=== PATIENT | female | born 1945 | race Caucasian/White ===

== ENCOUNTER 2016-10-23 07:50 | Inpatient (IN) | payer MEDICARE, MEDICAID ==
[~2016-10-23] VITALS: Ht 154.9 cm; Wt 73.0 kg
--- NOTE | 2016-10-23 07:50 | NUR ---
Patient to ER bed 4 to gown for evaluation. Side rails up. Report given to Kanwal SOLORZANO.
--- NOTE | 2016-10-23 07:58 | NUR ---
ER Dr. Newby at bedside examining patient.
[2016-10-23 07:59] VITALS: BP 136/78; PULSE 121; RESP 17; TEMP 97.1; O2SAT 99
--- NOTE | 2016-10-23 07:59 | NUR ---
DR AHUMADA AT BEDSIDE FOR EVALUATION
--- NOTE | 2016-10-23 08:02 | NUR ---
PT STATES SHE HAS BEEN VOMITING AND UNABLE TO KEEP ANY FOOD DOWN, DENIES CHOKING ON FOOD. DENIES ANY ABD PAIN.
[2016-10-23] MEDS ORDERED: NACL 0.9% 1,000 ML IV ONE ×2 (08:03→09:00)
[2016-10-23 08:18] LABS: BASOPHILS # (AUTO) 0.1 K/uL (0.0-0.2); HEMOGLOBIN 12.6 g/dL (12.0-16.0); LYMPHOCYTES # (AUTO) 1.2 K/uL (1.0-5.5); MEAN CORPUSCULAR HEMOGLOBIN 31 pg (27-31); MEAN CORPUSCULAR HGB CONC 34 % (32-36); MEAN CORPUSCULAR VOLUME 92 fL (79.0-98.0); MONOCYTES # (AUTO) 0.2 K/uL (0.0-1.0); MONOCYTES % (AUTO) 2.7 % (1.7-9.3); NEUTROPHILS # (AUTO) 6.7 K/uL (1.8-7.7); NEUTROPHILS % (AUTO) 81.3 % (40.0-70.0); PLATELET COUNT (AUTO) 241 K/uL (130-430); RED BLOOD CELL COUNT(AUTO) 4.03 MIL/uL (4.2-6.2); RED CELL DISTRIBUTION WIDTH 12.6 % (9.0-15.0); WHITE BLOOD COUNT (AUTO) 8.2 K/uL (4.8-10.8)
[2016-10-23 08:28] LABS: CREATININE 1.93 mg/dL (0.55-1.30)
[2016-10-23 08:29] LABS: PROTHROMBIN TIME 10.9 SECS (9.5-12.5)
--- NOTE | 2016-10-23 08:41 | NUR ---
PHARMACY CALLED FOR MEDS
[2016-10-23] MEDS ORDERED: MAGNESIUM SULFATE 50 ML IV ONE (08:45)
[2016-10-23] MEDS ORDERED: POTASSIUM CHLORIDE 20 MEQ TAB.PRT.SR PO ONE (08:45)
[2016-10-23] MEDS ORDERED: POTASSIUM CHLORIDE 40 MEQ in NS 250 ML IV ONE (08:45)
[2016-10-23 08:49] LABS: TOTAL BILIRUBIN 0.7 mg/dL (0.0-1.0)
[2016-10-23] MEDS ORDERED: BENA20TA2 PO (08:52)
[2016-10-23] MEDS ORDERED: HYDR25TA4 PO (08:52)
--- NOTE | 2016-10-23 08:52 | NUR ---
PT STATES SHE CAN NOT REMEMBER ALL HER HOME MEDS, SHE TAKES A NEW MED FOR THYROID, AND "A FEW OTHERS"
[2016-10-23 08:54] LABS: BILIRUBIN,URINE 1+ (NEGATIVE); CLARITY/URINE SL HAZY (CLEAR); COLOR,URINE YELLOW (YELLOW); GLUCOSE,URINE NEGATIVE (NEGATIVE); KETONES,URINE 1+ (NEGATIVE); LEUKOCYTE ESTERASE ,URINE 2+ (NEGATIVE); NITRITE, URINE NEGATIVE (NEGATIVE); PROTEIN URINE TRACE (NEGATIVE); UROBILINOGEN,URINE 0.2 (0.2-1.0)
[2016-10-23 08:58] LABS: ALBUMIN 4.7 g/dL (3.4-4.8)
[2016-10-23] MEDS ORDERED: NS 500 ML IV ONE (09:00)
[2016-10-23] MEDS ORDERED: ONDANSETRON HCL 4 MG/2 ML VIAL IVP ONE (09:00)
[2016-10-23 09:04] LABS: POTASSIUM 2.7 mmol/L (3.5-5.1)
[2016-10-23 09:05] LABS: CALCIUM 15.6 mg/dL (8.4-11.0)
[2016-10-23] MEDS ORDERED: POTASSIUM CHLORIDE 20 MEQ/PKT PACKET ONE (09:05)
[2016-10-23 09:08] LABS: BLOOD, URINE TRACE (NEGATIVE)
[2016-10-23 09:13] LABS: BACTERIA,URINE FEW /HPF (None Seen); MUCUS,URINE 1+ /LPF (None Seen); RBC,URINE 0-3 /HPF (0-3)
--- NOTE | 2016-10-23 09:39 | NUR ---
Patient will be admitted to care of DR BANUELOS. Admitted to TELE unit. Will go to room 108 C. Belongings list completed. Summary report printed. Report given to NURSE.
--- NOTE | 2016-10-23 10:00 | NUR ---
ADMISSION NOTE Received patient from ER via gurney. Patient admitted with diagnosis of hypercalcemia, and renal failure. Patient is awake, alert, oriented X 4. Patient oriented to hospital room, call light, toileting, pain management and safety-teach back done. Patient informed that Ora will be her nurse and that their room number is 108C. Personal belongings checked and Belongings List documented. Call light within reach.
--- NOTE | 2016-10-23 10:20 | NUR ---
initial notes rec patient awake alert oriented with hob elevated. both ivf infusing well on both ac. resp easy and unlabored. no nausea vomiting noted at this time. bed in low position and side rails up and locked. call light within reached and knows when to call for help. will continue to monitor patient.
[2016-10-23 10:22] VITALS: BP 114/81; PULSE 85; RESP 16; TEMP 98.1; O2SAT 98
--- NOTE | 2016-10-23 11:30 | NUR ---
seen by dr greene and with orders.
--- NOTE | 2016-10-23 12:01 | NUR ---
CONSULT CONSULT ORDERED WITH DR. SOLORIO FOR HYPERCALCEMIA. CONSULT ORDERED WITH DR. LOUISE FOR NAUSEA/VOMITING SPOKE WITH ENMANUEL
--- NOTE | 2016-10-23 14:30 | NUR ---
rounds ultrasound done at the bedside. dr saez called and gave him cmp result.
[2016-10-23 16:00] VITALS: BP 123/56; PULSE 78; RESP 18; TEMP 97.5; O2SAT 99
--- NOTE | 2016-10-23 17:00 | NUR ---
rounds seen by dr cai.
[2016-10-23] MEDS: cefTRIAXone 1 GM IVPB PREMIX 50 ML IV SCH (17:20)
[2016-10-23] MEDS: D5NS 1,000 ML IV SCH ×2 (17:21→21:45)
--- NOTE | 2016-10-23 18:30 | NUR ---
closing notes resting quietly, no nausea vomiting noted. stable, needs attended. no acute distress.
[2016-10-23 20:12] VITALS: BP 121/67; PULSE 79; RESP 15; TEMP 97.4; O2SAT 99
--- NOTE | 2016-10-23 20:13 | NUR ---
OPENING NOTES PATIENT IS A/OX4. NO SIGNS OF DISTRESS. BREATHING IS NON LABORED. VITAL SIGNS ARE STABLE. PATIENT HAS NO COMPLAINTS OF PAIN AT THIS TIME. PATIENT WALKED TO THE RESTROOM. GAIT IS STEADY. PATIENT INSTRUCTED TO CALL FOR ASSISTANCE. WILL CONTINUE TO MONITOR. CALL LIGHT IS WITHIN REACH. SAFETY MEASURES ARE IN PLACE. WILL CONTINUE TO MONITOR.
--- NOTE | 2016-10-23 20:50 | NUR ---
ROUNDS PATIENT WAS ASSISTED TO RESTROOM AND BACK INTO BED. GAIT IS STEADY. NO COMPLAINTS OF PAIN. NO COMPLAINTS OF NAUSEA.
--- NOTE | 2016-10-23 23:20 | NUR ---
ROUNDS PATIENT WAS GIVEN ICE CHIPS.
[2016-10-24 00:30] VITALS: BP 96/53; PULSE 67; RESP 18; TEMP 98.6; O2SAT 97
--- NOTE | 2016-10-24 01:18 | NUR ---
ROUNDS PATIENT IS IN BED SLEEPING. NO SIGNS OF DISTRESS. BREATHING IS NON LABORED. CALL LIGHT IS WITHIN REACH. SAFETY MEASURES ARE IN PLACE. WILL CONTINUE TO MONITOR.
--- NOTE | 2016-10-24 03:20 | NUR ---
ROUNDS PATIENT IS IN BED RESTING. PATIENT WAS GIVEN ICE CHIPS. NO SIGNS OF DISTRESS. BREATHING IS NON LABORED. PATIENT HAS NO COMPLAINTS OF PAIN. CALL LIGHT IS WITHIN REACH. SAFETY MEASURES ARE IN PLACE. WILL CONTINUE TO MONITOR.
[2016-10-24 04:34] VITALS: BP 92/55; PULSE 66; RESP 15; TEMP 96.8; O2SAT 98
--- NOTE | 2016-10-24 05:25 | NUR ---
ROUNDS PATIENT IS IN BED WATCHING TV. NO SIGNS OF DISTRESS. BREATHING IS NON LABORED. PATIENT WAS GIVEN ICE CHIPS.
--- NOTE | 2016-10-24 07:04 | NUR ---
CLOSING NOTES PATIENT IS IN BED RESTING AND WATCHING TV. NO SIGNS OF DISTRESS. BREATHING IS NON LABORED. IV IS PATENT AND SHOWS NO SIGNS OF COMPLICATIONS. PATIENT HAS NO COMPLAINTS OF NAUSEA OR VOMITING. CALL LIGHT IS WITHIN REACH. SAFETY MEASURES ARE IN PLACE. WILL CONTINUE TO MONITOR.
[2016-10-24 07:17] LABS: BASOPHILS % (AUTO) 0.5 % (0.0-2.0); EOSINOPHILS % (AUTO) 0.3 % (0.0-4.0); HEMATOCRIT 29.4 % (36-48); HEMOGLOBIN 9.7 g/dL (12.0-16.0); LYMPHOCYTES # (AUTO) 1.2 K/uL (1.0-5.5); LYMPHOCYTES % (AUTO) 29.4 % (20.5-51.5); MEAN CORPUSCULAR HEMOGLOBIN 31 pg (27-31); MEAN CORPUSCULAR HGB CONC 33 % (32-36); MEAN CORPUSCULAR VOLUME 95 fL (79.0-98.0); MONOCYTES # (AUTO) 0.2 K/uL (0.0-1.0); MONOCYTES % (AUTO) 4.6 % (1.7-9.3); NEUTROPHILS # (AUTO) 2.8 K/uL (1.8-7.7); NEUTROPHILS % (AUTO) 65.2 % (40.0-70.0); PLATELET COUNT (AUTO) 154 K/uL (130-430); RED BLOOD CELL COUNT(AUTO) 3.11 MIL/uL (4.2-6.2); RED CELL DISTRIBUTION WIDTH 12.8 % (9.0-15.0)
[2016-10-24 07:27] LABS: WHITE BLOOD COUNT (AUTO) 4.2 K/uL (4.8-10.8)
[2016-10-24 08:00] VITALS: BP 104/60; PULSE 69; RESP 18; TEMP 98.6; O2SAT 100
--- NOTE | 2016-10-24 08:00 | NUR ---
NOTE PT SITTING UP IN BED EATING HER ICE CHIPS. VSS. NO SOB/RESP DISTRESS OR PAIN/DISCOMFORT NOTED AT THIS TIME. IVF'S INFUSING WELL THROUGH RIGHT HAND IV SITE. CALL LIGHT WITHIN REACH.
[2016-10-24 10:02] LABS: CALCIUM 11.6 mg/dL (8.4-11.0); CREATININE 1.45 mg/dL (0.55-1.30)
[2016-10-24 10:07] LABS: POTASSIUM 2.9 mmol/L (3.5-5.1)
[2016-10-24 10:10] LABS: TOTAL BILIRUBIN 0.4 mg/dL (0.0-1.0)
[2016-10-24 10:11] LABS: ALBUMIN 3.6 g/dL (3.4-4.8); PHOSPHORUS 1.6 mg/dL (2.7-4.5); TOTAL PROTEIN, SERUM 7.3 g/dL (6.4-8.3)
[2016-10-24 10:14] LABS: IRON (SERUM) 67 mcg/dL (37-145); TOTAL IRON BIND. CAPACITY 246 ug/dL (250-450)
--- NOTE | 2016-10-24 12:00 | NUR ---
NOTE PT RESTING IN BED. PT TO HAVE CLEAR LIQUID DIET TILL MIDNIGHT, THEN PT TO BE NPO FOR EGD IN AM. PT NOTIFIED AND QUESTIONS/CONCERNS WERE ANSWERED AT THIS TIME. NO NEEDS NOTED. CALL LIGHT WITHIN REACH.
[2016-10-24 12:35] VITALS: BP 116/59; PULSE 73; RESP 17; TEMP 98.1; O2SAT 93
[2016-10-24] MEDS ORDERED: POTASSIUM CHLORIDE 40 MEQ in NS 250 ML IV ONE (12:45)
[2016-10-24] MEDS ORDERED: PSYLLIUM HUSK 1 PKT PACKET PO ONE (12:45)
[2016-10-24] MEDS ORDERED: POTASSIUM CHLORIDE 20 MEQ TAB.PRT.SR PO ONE (12:45)
[2016-10-24] MEDS ORDERED: PSYLLIUM HUSK 1 PKT PACKET PO SCH (12:45)
[2016-10-24] MEDS: cefTRIAXone 1 GM IVPB PREMIX 50 ML IV SCH (12:56)
[2016-10-24] MEDS: D5NS 1,000 ML IV SCH ×2 (12:59→22:35)
--- NOTE | 2016-10-24 16:00 | NUR ---
NOTE DR SOLORIO WAS CALLED AND REPORT OF K=2.9 GIVEN, ORDERS REC'D AND CARRIED OUT AT THIS TIME. NO NEEDS NOTED. CALL LIGHT WITHIN REACH.
[2016-10-24 16:23] VITALS: BP 105/54; PULSE 74; RESP 18; TEMP 98.7; O2SAT 95
--- NOTE | 2016-10-24 18:25 | NUR ---
NOTE PT AMBULATES TO THE RESTROOM, ABLE TO VOID BUT NO BOWEL MOVEMENT AT THIS TIME. IVF'S INFUSING WELL THROUGH RIGHT HAND IV SITE. TELE UNIT ATTACHED AND INTACT AT THIS TIME. PT WAS CHECKED ON Q1'A ND PRN FOR NEEDS AND CARE ALL SHIFT. NO NEEDS NOTED. CALL LIGHT WITHIN REACH.
--- NOTE | 2016-10-24 19:00 | NUR ---
NOTE PT WAS DOWN GRADED FROM TELE STATUS TO MED SURG AT THIS TIME. TELE UNIT DC'D AND RETURNED TO SKEIN SPOOLER.
[2016-10-24 19:35] VITALS: BP 132/70; PULSE 83; RESP 18; TEMP 98.7; O2SAT 97
--- NOTE | 2016-10-24 19:35 | NUR ---
Initial Notes Pt is A/Ox4. Pt is pleasant and cooperative. No acute distress or sob noted. Pt c/o heartburn, will page md for orders. VSS. IV to RAC #20g noted, infusing well with D5NS@100cc/hr. Pt aware that she will be NPO after midnight for planned EGD in am, consent checked and noted to be signed and filed in chart. Pt is BRP with assist. Pt stated that she was given Metamucil earlier today for constipation. Asked pt if she wanted additional stool softener, but pt stated, No I had enough for today." Pt educated sales correspondence clerk light use, and correct back demonstration noted. Pt was also given direct ext and asked to call nurse when needed. Pt denies any nausea or vomiting at this time. Safety precautions in place, side rails up x3, with bed in lowest, locked position, bed alarm on at all times. Call light in hand. Will continue to monitor.
--- NOTE | 2016-10-24 19:58 | NUR ---
PAGEAriadna CALLED HCP AT SPOKE WITH DR.REZVANI GUTIERREZ FARHAD MACHINE ASSEMBLER FOR PULLER OVER.
--- NOTE | 2016-10-24 20:01 | NUR ---
Edith Sharma MD at this time to inform that pt is c/o heartburn. Will await call back.
[2016-10-24] MEDS ORDERED: MAG-AL HYDROX/SIMETH 30 ML UDC PO PRN (20:15)
[2016-10-24] MEDS ORDERED: BISACODYL 5 MG TABLET.DR (DULCOLAX) PO ONE (20:15)
[2016-10-24] MEDS ORDERED: BISACODYL 5 MG TABLET.DR (DULCOLAX) PO PRN (20:45)
[2016-10-24] MEDS ORDERED: FAMOTIDINE 20 MG TABLET PO SCH (21:00)
--- NOTE | 2016-10-24 21:12 | NUR ---
Heartburn Medication given Pt c/o heartburn. New order for Mylanta and Pepcid received. Pt medicated with Mylanta 30ml and Pepcid 20mg PO as ordered per MD. All needs met at this time. Call light in hand. Will continue to monitor.
[2016-10-24] MEDS ORDERED: K PHOS 30 MM in NS 250 ML IV ONE (23:30)
[2016-10-25 00:26] VITALS: BP 102/56; PULSE 72; RESP 18; TEMP 96.4; O2SAT 98
--- NOTE | 2016-10-25 01:10 | NUR ---
New order for K phos noted New order for K phos noted. Order given to supervisor cartography, but stated not available in night locker and will have to wait till the morning.
--- NOTE | 2016-10-25 01:45 | NUR ---
assumed the care of the pt.fatoumata harman;tamia.pt.2 submit2 egd in am:10/25/16.pt.diet status change 2 npo.iv fluids infusing. no c/o pain,nause,nor sob upon excertion.
--- NOTE | 2016-10-25 03:30 | NUR ---
pt.assessed.pt.presents stable status.iv fluids re-adjusted:pt.will kink line when flexing arm.call light w/in pt's reach.
[2016-10-25] MEDS: D5NS 1,000 ML IV SCH ×2 (03:45→13:45)
[2016-10-25 05:48] VITALS: BP 106/62; PULSE 75; RESP 18; TEMP 97.3; O2SAT 99
--- NOTE | 2016-10-25 06:00 | NUR ---
pt.assessed.iv fluids obstruction.line re-adjusted.pt.apprised me that she had presents a bowel movement 1st bm w/in 1 week.stool formed large quantity.bowel regimen re:constipation initiated @night:10/24/16.call light w/in pt's reach.
[2016-10-25 07:26] LABS: PROTHROMBIN TIME 11.3 SECS (9.5-12.5)
--- NOTE | 2016-10-25 07:30 | NUR ---
PATIENT TO GI LAB
[2016-10-25 07:32] LABS: ALBUMIN 3.3 g/dL (3.4-4.8); CREATININE 1.01 mg/dL (0.55-1.30); TOTAL BILIRUBIN 0.2 mg/dL (0.0-1.0); TOTAL PROTEIN, SERUM 6.1 g/dL (6.4-8.3)
[2016-10-25] MEDS ORDERED: MIDAZOLAM HCL 5 MG/5 ML VIAL ONE (07:39)
[2016-10-25] MEDS: fentaNYL CITRATE/PF 100 MCG/2 ML AMP ONE ×2 (08:09→08:13)
[2016-10-25] MEDS: MIDAZOLAM HCL 5 MG/5 ML VIAL ONE ×3 (08:11→08:20)
--- NOTE | 2016-10-25 08:59 | NUR ---
Nutrition Update Maximiliano Scale 18 noted. Pt admitted for hypercalcemia, renal failure. Diet: full liquid BMI: 30.2 kg/m2 RD to follow per nutrition care standards.
[2016-10-25] MEDS ORDERED: PANTOPRAZOLE SODIUM 40 MG TAB PO SCH (09:00)
[2016-10-25] MEDS ORDERED: PSYLLIUM HUSK 1 PKT PACKET PO SCH (09:00)
--- NOTE | 2016-10-25 09:25 | NUR ---
PT RETURNED FROM GI LAB
[2016-10-25 10:00] VITALS: BP 122/69; PULSE 70; RESP 18; TEMP 98; O2SAT 100
--- NOTE | 2016-10-25 10:00 | NUR ---
PT SITTING UP IN BED, NO S/S OF DISTRESS OR COMPLAINT OF PAIN, VSS, IV FLUIDS CONNECTED AND FLUIDS INFUSING AT ORDERED RATE, SAFETY MEASURES IN PLACE, BED IN LOW POSITION AND LICKED, CALL LIGHT WITHIN REACH, WILL FOLLOW UP.
[2016-10-25 10:08] LABS: A/G RATIO 1.2 (0.7-1.7); ALBUMIN 3.7 g/dL (2.9-4.4); ALPHA-1-GLOBULIN 0.3 g/dL (0.0-0.4); ALPHA-2-GLOBULIN 0.8 g/dL (0.4-1.0); BETA GLOBULIN 0.8 g/dL (0.7-1.3); GAMMA GLOBULIN 1.3 g/dL (0.4-1.8); GLOBULIN, TOTAL 3.2 g/dL (2.2-3.9); M-SPIKE Not Observed g/dL (Not Observed)
[2016-10-25] MEDS: SUCRALFATE 1 GM TABLET PO SCH ×2 (10:14→16:08)
[2016-10-25] MEDS: cefTRIAXone 1 GM IVPB PREMIX 50 ML IV SCH (11:22)
--- NOTE | 2016-10-25 12:00 | NUR ---
PT MEAL TRAY SET UP FOR LUNCH, ALL NEEDS ATTENDED TO, WILL FOLLOW UP.
[2016-10-25 12:54] VITALS: BP 123/75; PULSE 84; RESP 17; TEMP 97.9; O2SAT 97
[2016-10-25 13:07] LABS: PTH, INTACT 29 pg/mL (15-65)
--- NOTE | 2016-10-25 14:00 | NUR ---
PER MD, PROVIDED PATIENT WITH SOFT MEAL TRAY, WILL MONITOR TOLERANCE AND BEGIN DISCHARGE PREPARATIONS. PT TOLERATED MEAL WELL, NO COMPLAINT OF NAUSEA, VOMITING OR PAIN.
[2016-10-25 14:17] VITALS: Ht 154.9 cm; Wt 73.0 kg
[2016-10-25 14:57] VITALS: BP 123/75; PULSE 84; RESP 17; TEMP 97.9; O2SAT 97
--- NOTE | 2016-10-25 15:45 | NUR ---
PROVIDED EXIT CARE, TRANSITIONAL PAPERWORK DISCUSSED AND SIGNED, PATIENT VERBALIZES UNDERSTANDING. IV CATHETER REMOVED, AND DRESSING APPLIED, NO ACTIVE BLEEDING NOTED, PT ASSISTED TO CHANGE INTO PERSONAL CLOTHING, BELONGINGS GATHERED AND PLACED IN BAG WITH PATIENT. WILL CONTINUE TO MONITOR AND CALL [facility]
--- NOTE | 2016-10-25 16:15 | NUR ---
CALLED [facility] FOR TRANSPORT HOME, ESTIMATED REGISTRATION SPECIALIST TIME IS WITHIN 30 MIN, PATIENT AWARE.
[2016-10-25 16:19] VITALS: BP 119/69; PULSE 79; RESP 18; TEMP 97.8; O2SAT 98
--- NOTE | 2016-10-25 16:45 | NUR ---
D/C Patient Patient given medication reconciliation form and D/C instructions. Exit Care provided. Patient verbalized understanding. discussed with patient the results and treatment provided. Ambulatory with steady gait for discharge to home. Patient left floor via wheel chair by MORRIS Peter. Patient in stable condition, ID band removed. IV catheter removed, intact and dressing applied, no active bleeding. Patient educated on pain management. All belongings sent with patient. Awaiting for taxi to pick her up, accompanied by MORRIS.
[2016-10-27 01:19] LABS: HAPTOGLOBIN 170 mg/dL (34-200)
[2016-10-28 14:10] LABS: PTH RELATED PEPTIDE <1.1 pmol/L (.)
--- NOTE | 2016-10-29 15:25 | NUR ---
Discharge Follow Up Phone Call [employer] REPRESENTATIVE phoned patient, . Patient stated she was doing well. HCP made patient's follow up appointments with her PCP on 10/30/16 and the sales representative [employer] on 11/12/16. Patient believes her condition was caused by overuse of antacids. Patient was very happy with her care at [facility]. She has no questions or concerns. No further follow up needed.
== END 2016-10-25 16:45 | disposition home or self-care (01) | DRG 391 ==
LOC: SED 07:50 → SMU 09:28 → STU 09:41 → SMU 10-24 18:51
PROVIDERS: ADMIT Internal Medicine Hospice and Palliative Medicine; ATTEND Internal Medicine Hospice and Palliative Medicine
PROC: 0DB58ZX Excision of Esophagus, Via Natural or Artificial Opening Endoscopic, Diagnostic (ICD-10-PCS; 2016-10-25)
PROC: 0DB98ZX Excision of Duodenum, Via Natural or Artificial Opening Endoscopic, Diagnostic (ICD-10-PCS; principal; 2016-10-25 08:00)
DX: K29.70 Gastritis, unspecified, without bleeding (principal); N17.0 Acute kidney failure with tubular necrosis; E83.52 Hypercalcemia; E78.5 Hyperlipidemia, unspecified; E87.6 Hypokalemia; E86.0 Dehydration; I10 Essential (primary) hypertension; K20.9 Esophagitis, unspecified; K44.9 Diaphragmatic hernia without obstruction or gangrene; Z88.5 Allergy status to narcotic agent
CPT/HCPCS: 36415; 43239; 71010; 76700-TC; 80053; 81000-TC; 82306; 82607; 83010; 83519; 83540-TC; 83550-TC; 83605; 83615-TC; 83690-TC; 83735-TC; 83880; 83970; 84100-TC; 84155; 84165; 85025; 85610-TC; 85730-TC; 87081; 87086; 88305; 88313; 93005; 96365; 96375; 99285; J0696; J2250; J2405; J3010; J3475; J3480; J7030; J7042; J7050